=== PATIENT | female | born 1925 | race Caucasian/White ===

== ENCOUNTER 2016-12-01 14:33 | Emergency (ER) | payer MEDICARE ==
[2016-12-01] MEDS ORDERED: MORPHINE SULFATE 4 MG/ML SYRINGE IV STA (15:27)
[2016-12-01] MEDS ORDERED: SODIUM CHLORIDE 0.9% 1,000 ML IV STA (15:27)
[2016-12-01 15:45] LABS: Basophils # (A) 0.1 k/uL (0-0.2); Basophils % (A) 1 %; CH 29.6; Eosinophils # (A) 0.2 k/uL (0-0.7); Eosinophils % (A) 3 %; HCT 33.7 % (34.0-46.0); HDW 2.12; HGB 10.9 gm/dL (11.4-16.0); Luc # (Auto) 0.14; Luc % (Auto) 3; Lymphocytes # (A) 1.1 k/uL (1.0-4.8); Lymphocytes % (A) 19 %; MCH 29.2 pg (25.0-35.0); MCHC 32.4 g/dL (31.0-37.0); MCV 90.2 fL (80.0-100.0); Monocytes # (A) 0.4 k/uL (0-1.0); Monocytes % (A) 7 %; Neutrophils # (A) 3.8 k/uL (1.3-7.7); Neutrophils % (A) 68 %; RBC 3.73 m/uL (3.80-5.40); RDW 14.9 % (11.5-15.5); WBC 5.6 k/uL (3.8-10.6); WBC (Perox) 6.15
--- NOTE | 2016-12-01 15:46 | ED ---
General Adult HPI - General Chief complaint: Abdominal Pain Stated complaint: abd pain Time Seen by Provider: 12/01/16 14:46 Source: patient, EMS, RN notes reviewed, old records reviewed Mode of arrival: EMS Limitations: no limitations - History of Present Illness Initial comments: This is an 89-year-old female here for evaluation of epigastric abdominal pain rating to back. Patient has episodes for about 2 months. No change in pain. Pain patient patient states pain appears to be stabbing and intermittent. Currently without pain. There is no cough congestion or abdominal pain or nausea vomiting or diarrhea. - Related Data Home Medications Medication Instructions Recorded Confirmed LORazepam [Ativan] 1 mg PO QID@,,,03/15/15 12/01/16 Diltiazem HCl [Cartia Xt] 120 mg PO DAILY@0903/17/15 12/01/16 hydrALAZINE HCL [Apresoline] 25 mg PO DAILY@0903/17/15 12/01/16 Mirtazapine [Remeron] 15 mg PO HS@2100 09/21/15 12/01/16 Pravastatin Sodium [Pravachol] 20 mg PO HS@2100 09/21/15 12/01/16 Methylphenidate HCl [Ritalin] 5 mg PO DAILY@0912/01/16 12/01/16 buPROPion HCL [Wellbutrin SR] 75 mg PO DAILY@1700 12/01/16 12/01/16 buPROPion HCL [Wellbutrin SR] 150 mg PO DAILY@0912/01/16 12/01/16 Allergies Allergy/AdvReac Type Severity Reaction Status Date / Time aspirin [From Aggrenox] Allergy Unknown Verified 09/21/15 15:59 dipyridamole [From Aggrenox] Allergy Unknown Verified 09/21/15 15:59 isosorbide Allergy Unknown Verified 09/21/15 15:59 Review of Systems ROS Statement: Those systems with pertinent positive or pertinent negative responses have been documented in the HPI. ROS Other: All systems not noted in ROS Statement are negative. Past Medical History Past Medical History: COPD, GI Bleed, Hypertension Additional Past Medical History / Comment(s): Anemia, peptic ulcer disease, urinary retention History of Any Multi-Drug Resistant Organisms: None Reported Past Surgical History: Unable to Obtain Past Anesthesia/Blood Transfusion Reactions: No Reported Reaction Past Psychological History: Depression Smoking Status: Current every day smoker Past Alcohol Use History: None Reported Past Drug Use History: None Reported - Past Family History Daughter(s) Family Medical History: Liver Disease General Exam Limitations: no limitations General appearance: alert, in no apparent distress Head exam: Present: atraumatic, normocephalic, normal inspection Eye exam: Present: normal appearance, PERRL, EOMI. Absent: scleral icterus, conjunctival injection, periorbital swelling ENT exam: Present: normal exam, mucous membranes moist Neck exam: Present: normal inspection. Absent: tenderness, meningismus, lymphadenopathy Respiratory exam: Present: normal lung sounds bilaterally. Absent: respiratory distress, wheezes, rales, rhonchi, stridor Cardiovascular Exam: Present: regular rate, normal rhythm, normal heart sounds. Absent: systolic murmur, diastolic murmur, rubs, gallop, clicks GI/Abdominal exam: Present: soft, normal bowel sounds. Absent: distended, tenderness, guarding, rebound, rigid Extremities exam: Present: normal inspection, full ROM, normal capillary refill. Absent: tenderness, pedal edema, joint swelling, calf tenderness Back exam: Present: normal inspection Neurological exam: Present: alert, oriented X3, CN II-XII intact Psychiatric exam: Present: normal affect, normal mood Skin exam: Present: warm, dry, intact, normal color. Absent: rash Course Vital Signs 12/01/16 12/01/16 12/01/16 14:35 15:58 17:15 Temperature 98.1 F Pulse Rate 54 L 74 64 Respiratory 18 16 18 Rate Blood Pressure 153/69 177/81 188/78 O2 Sat by Pulse 95 100 99 Oximetry 12/01/16 18:41 Temperature 97.3 F L Pulse Rate 64 Respiratory 18 Rate Blood Pressure 178/83 O2 Sat by Pulse 99 Oximetry - Reevaluation(s) Reevaluation #1: Pain resolved EKG Findings - EKG Comments: EKG Findings:: EKG shows sinus bradycardia rate of 52, pO2 22, QRS 100, QTC 418 Medical Decision Making - Medical Decision Making 89 female to the ER ER is with chest pain abdominal pain. There is resolved, CTs are negative lab work is normal patient can be discharged home - Lab Data Result diagrams: 12/01/16 15:30 12/01/16 15:30 Lab Results 12/01/16 12/01/16 12/01/16 Range/Units 15:30 15:30 15:30 WBC 5.6 (3.8-10.6) k/uL RBC 3.73 L (3.80-5.40) m/uL Hgb 10.9 L (11.4-16.0) gm/dL Hct 33.7 L (34.0-46.0) % MCV 90.2 (80.0-100.0) fL MCH 29.2 (25.0-35.0) pg MCHC 32.4 (31.0-37.0) g/dL RDW 14.9 (11.5-15.5) % Plt Count 268 (150-450) k/uL Neutrophils % 68 % Lymphocytes % 19 % Monocytes % 7 % Eosinophils % 3 % Basophils % 1 % Neutrophils # 3.8 (1.3-7.7) k/uL Lymphocytes # 1.1 (1.0-4.8) k/uL Monocytes # 0.4 (0-1.0) k/uL Eosinophils # 0.2 (0-0.7) k/uL Basophils # 0.1 (0-0.2) k/uL PT (9.0-12.0) sec INR (<1.2) APTT (22.0-30.0) sec D-Dimer (<0.60) mg/L FEU Sodium 131 L (137-145) mmol/L Potassium 4.1 (3.5-5.1) mmol/L Chloride 100 (98-107) mmol/L Carbon Dioxide 22 (22-30) mmol/L Anion Gap 9 mmol/L BUN 18 H (7-17) mg/dL Creatinine 1.16 H (0.52-1.04) mg/dL Est GFR (MDRD) Af Amer 53 (>60 ml/min/1.73 sqM) Est GFR (MDRD) Non-Af 44 (>60 ml/min/1.73 sqM) Glucose 111 H (74-99) mg/dL Plasma Lactic Acid Zackary (0.7-2.0) mmol/L Calcium 8.8 (8.4-10.2) mg/dL Phosphorus 3.7 (2.5-4.5) mg/dL Magnesium 1.7 (1.6-2.3) mg/dL Total Bilirubin 0.3 (0.2-1.3) mg/dL AST 24 (14-36) U/L ALT 33 (9-52) U/L Alkaline Phosphatase 86 (38-126) U/L Total Creatine Kinase 149 H (30-135) U/L CK-MB (CK-2) 1.8 (0.0-2.4) ng/mL CK-MB (CK-2) Rel Index 1.2 Troponin I <0.012 (0.000-0.034) ng/mL Total Protein 6.0 L (6.3-8.2) g/dL Albumin 3.8 (3.5-5.0) g/dL Lipase (23-300) U/L 12/01/16 12/01/16 12/01/16 Range/Units 15:30 15:30 15:30 WBC (3.8-10.6) k/uL RBC (3.80-5.40) m/uL Hgb (11.4-16.0) gm/dL Hct (34.0-46.0) % MCV (80.0-100.0) fL MCH (25.0-35.0) pg MCHC (31.0-37.0) g/dL RDW (11.5-15.5) % Plt Count (150-450) k/uL Neutrophils % % Lymphocytes % % Monocytes % % Eosinophils % % Basophils % % Neutrophils # (1.3-7.7) k/uL Lymphocytes # (1.0-4.8) k/uL Monocytes # (0-1.0) k/uL Eosinophils # (0-0.7) k/uL Basophils # (0-0.2) k/uL PT 10.4 (9.0-12.0) sec INR 1.0 (<1.2) APTT 24.0 (22.0-30.0) sec D-Dimer 0.98 H (<0.60) mg/L FEU Sodium (137-145) mmol/L Potassium (3.5-5.1) mmol/L Chloride (98-107) mmol/L Carbon Dioxide (22-30) mmol/L Anion Gap mmol/L BUN (7-17) mg/dL Creatinine (0.52-1.04) mg/dL Est GFR (MDRD) Af Amer (>60 ml/min/1.73 sqM) Est GFR (MDRD) Non-Af (>60 ml/min/1.73 sqM) Glucose (74-99) mg/dL Plasma Lactic Acid Zackary 1.4 (0.7-2.0) mmol/L Calcium (8.4-10.2) mg/dL Phosphorus (2.5-4.5) mg/dL Magnesium (1.6-2.3) mg/dL Total Bilirubin (0.2-1.3) mg/dL AST (14-36) U/L ALT (9-52) U/L Alkaline Phosphatase (38-126) U/L Total Creatine Kinase (30-135) U/L CK-MB (CK-2) (0.0-2.4) ng/mL CK-MB (CK-2) Rel Index Troponin I (0.000-0.034) ng/mL Total Protein (6.3-8.2) g/dL Albumin (3.5-5.0) g/dL Lipase 187 (23-300) U/L - Radiology Data Radiology results: report reviewed (CTA chest, CT abdomen and pelvis negative for acute disease), image reviewed Disposition Clinical Impression: Generalized weakness, Abdominal pain Disposition: HOME SELF-CARE Condition: Good Instructions: Abdominal Pain (ED) Referrals: Levar Wilson DO [Primary Care Provider] - 1-2 days
[2016-12-01 15:59] LABS: Calcium 8.8 mg/dL (8.4-10.2); Magnesium 1.7 mg/dL (1.6-2.3); Phosphorous 3.7 mg/dL (2.5-4.5); Potassium 4.1 mmol/L (3.5-5.1); Prothrombin Time 10.4 sec (9.0-12.0); Total Bilirubin 0.3 mg/dL (0.2-1.3)
[2016-12-01 16:11] LABS: Creatine Kinase 149 U/L (30-135)
[2016-12-01 16:24] LABS: Creatine Kinase MB 1.8 ng/mL (0.0-2.4); Troponin I <0.012 ng/mL (0.000-0.034)
[2016-12-01] MEDS ORDERED: RX INFO: IV CONTRAST WAS GIVEN 1 EACH MISC MISCELLANE PRN (16:37)
--- NOTE | 2016-12-01 18:03 | CT ---
EXAMINATION TYPE: CT abdomen pelvis w con DATE OF EXAM: 12/01/2016 COMPARISON: 09/19/2015 HISTORY: Mid abdominal pain, history of bleeding ulcers. CT DLP: 1361.30 mGycm Automated exposure control for dose reduction was used. TECHNIQUE: Helical acquisition of images was performed from the lung bases through the pelvis. CONTRAST: Performed without Oral Contrast and with IV Contrast, patient injected with 80 mL of Visipaque 320. FINDINGS: There is patchy linear density at the lung bases. There is no pleural effusion. Heart is enlarged. There are small calcified multiple granulomata. Liver shows no focal defect. Gallbladder appears norm al. Bile ducts are not dilated. There is arthroscopic vascular calcification. There is no sign of a p ancreatic mass. There is 3.4 cm abdominal aortic aneurysm below the renal arteries. Abdominal aorta is atheromatous. There are multiple bilateral renal cortical cysts. The largest measures 3 cm on the anterior right ki dney. There is no hydronephrosis. Ureters are not dilated. There is no retroperitoneal adenopathy. Th ere are multiple sigmoid diverticula. Bladder distends smoothly. The urinary bladder is mildly dilate d. There is no sign of appendicitis. There is moderate multilevel spondylosis in the lumbar spine. Th ere is no compression fracture. There is multilevel lumbar bony spinal stenosis. IMPRESSION: THERE IS PATCHY LINEAR INFILTRATE AND ATELECTASIS AT THE POSTERIOR LUNG BASES THAT IS WORSE THAN LAST EXAM. HEALED GRANULOMATOUS DISEASE. MULTIPLE RENAL CORTICAL CYSTS. 3.4 CM ABDOMINAL AORTIC ANEURYSM IS UNCHANGED. ATHEROSCLEROTIC VASCULAR DISEASE. SIGMOID DIVERTICULOSIS WITHOUT DIVERTICULITIS. CHRONIC URINARY BLADDER DILATION.
[2016-12-01 18:05] VITALS: PULSE 64; RESP 18
--- NOTE | 2016-12-01 18:06 | CT ---
EXAMINATION TYPE: CT angio chest DATE OF EXAM: 12/01/2016 5:55 PM COMPARISON: NONE HISTORY: Mid chest pain. CT DLP: 216.30 mGycm Automated exposure control for dose reduction was used. CONTRAST: CTA scan of the thorax is performed with IV Contrast, patient injected with 80 mL of Visipaque 320, p ulmonary embolism protocol. There are 3-D post processed images.. FINDINGS: The lungs are clear of consolidation. There are some interstitial fibrotic changes at the posterior l abhijeet bases with mild pleural thickening. Heart is enlarged. There is no pericardial effusion. I see no filling defects in the pulmonary arteries. There is no evidence of aortic dissection. There is mild ectasia of the ascending aorta that measures 4 cm. There is no mediastinal adenopathy. There are spondylotic changes in the thoracic spine. IMPRESSION: NO EVIDENCE OF PULMONARY EMBOLISM. ATHEROSCLEROTIC VASCULAR DISEASE. MILD 4 CM ANEURYSM ASCENDING AOR TA. FIBROTIC CHANGES AND ATELECTASIS AT THE LUNG BASES.
[2016-12-01 18:43] VITALS: BP 178/83; TEMP 97.3
== END 2016-12-01 18:43 | disposition home or self-care (01) ==
LOC: EC 14:33
DX: R53.1 Weakness (principal); R10.13 Epigastric pain; I10 Essential (primary) hypertension; F32.9 Major depressive disorder, single episode, unspecified; F17.200 Nicotine dependence, unspecified, uncomplicated; Z87.11 Personal history of peptic ulcer disease; Z79.899 Other long term (current) drug therapy; Z88.6 Allergy status to analgesic agent; Z88.8 Allergy status to other drugs, medicaments and biological substances
CPT/HCPCS: 36415; 93005; 85379; 80053; 82550; 82553; 83605; 83690; 83735; 84100; 84484; 85025; 85610; 85730; 71275; 74177; 99285; 96374; 96361 ×2; J2270; Q9967